=== PATIENT | male | born 1995 | race Two or more races ===

== ENCOUNTER 2024-12-03 03:00 | Emergency (ER) | payer SELFPAY ==
[~2024-12-03] VITALS: Ht 170.2 cm; Wt 82.0 kg
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
[2024-12-03] MEDS: ACETAMINOPHEN 325 MG TAB PO ONE (04:12)
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
[2024-12-03 04:14] VITALS: BP 135/60; RESP 15; TEMP 98.3
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
[2024-12-03 04:17] VITALS: PULSE 95; O2SAT 95
== END 2024-12-03 05:03 | disposition home or self-care (01) ==
LOC: ER 03:00 → EDBD 03:00 → ER 05:03
DX: S16.1XXA Strain of muscle, fascia and tendon at neck level, initial encounter (principal); V49.49XA Driver injured in collision with other motor vehicles in traffic accident, initial encounter; Y93.89 Activity, other specified; Y92.89 Other specified places as the place of occurrence of the external cause; Y99.8 Other external cause status
CPT/HCPCS: 71045; 72040